=== PATIENT | female | born 1930 | race Caucasian/White ===

== ENCOUNTER 2017-03-02 04:25 | Emergency (ER) | payer MEDICARE, OTHER ==
[~2017-03-02] VITALS: Ht 154.9 cm; Wt 72.8 kg
[~2017-03-02 04:25] MED LIST: CEFD300C PO; LEVO125T PO; thyroid
--- NOTE | 2017-03-02 04:25 | NUR ---
Pt presents to ER with c/o left shoulder pain down to left ribs. Onset Friday morning. Reports pain is worse at times than at others. While she lies still, rates at 1/10. With movement, rates 7-8/10. Pt denies any falls or outside work. No other concerns presented.
--- OUTSIDE RECORDS SUMMARY | 2017-03-02 04:29 | XMS REPORT | Continuity of Care Document ---
Author Author [facility] Address Unknown Phone Unavailable Allergies Active Description Code Type Severity Reaction Onset Reported/Identified Relationship to Patient Clinical Status Yes adhesive tape 3254 Ingredient moderate redness Yes No Known Drug Allergies [id number] Drug Allergy Unknown N/ A 07/19/2012 Medications Problems Date Dx Coded Attending Type Code Diagnosis Diagnosed By 07/19/2012 Ot 873.42 07/19/2012 Ot 910.0 07/19/2012 Ot 913.0 07/19/2012 Ot 916.0 07/19/2012 Ot 920 07/19/2012 Ot E885.9 11/23/2014 Thanh GIRON, Drake Smith Ot 793.82 11/25/2014 Drake Law MD Ot 793.82 12/17/2014 Ot V76.12 12/17/2014 Ot 793.82 12/17/2014 Ot V76.12 12/17/2014 Ot 793.82 12/17/2014 Ot 610.0 12/17/2014 Ot 611.79 12/17/2014 Ot 611.79 12/17/2014 Ot V67.59 12/17/2014 Drake Law MD Ot 793.82 12/17/2014 Ot 789.69 12/17/2014 Ot 873.41 12/17/2014 Ot E812.0 12/17/2014 Ot E849.5 12/22/2014 Ot V76.12 12/22/2014 Ot 793.82 12/22/2014 Ot V76.12 12/22/2014 Ot 793.82 12/22/2014 Ot 610.0 12/22/2014 Ot 611.79 12/22/2014 Ot 611.79 12/22/2014 Ot V67.59 12/22/2014 Drake Law MD Ot 793.82 12/22/2014 Ot 920 12/22/2014 Ot E812.0 12/22/2014 Ot E849.5 12/22/2014 Ot V64.2 12/23/2014 Ot V76.12 12/23/2014 Ot 793.82 12/23/2014 Ot V76.12 12/23/2014 Ot 793.82 12/23/2014 Ot 610.0 12/23/2014 Ot 611.79 12/23/2014 Ot 611.79 12/23/2014 Ot V67.59 12/23/2014 Thanh GIRON, Drake Smith Ot 793.82 12/23/2014 Ot 920 12/23/2014 Ot E812.0 12/23/2014 Ot E849.5 12/23/2014 Ot V64.2 01/30/2015 JOHANNA GIRON, MALU Ot 599.0 01/30/2015 JOHANNA GIRON, MALU Ot 780.79 03/06/2015 JOHANNA GIRON, MALU Ot 780.2 03/06/2015 JOHANNA GIRON, MALU Ot 780.79 03/06/2015 JOHANNA GIRON, MALU Ot 787.01 03/06/2015 JOHANNA GIRON, MALU Ot E849.0 03/06/2015 JOHANNA GIRON, MALU Ot E888.9 05/05/2015 Drake Law MD Ot 793.82 05/10/2015 Thanh GIRON, Drake Smith Ot 793.82 05/24/2015 Drake Law MD Ot 793.82 07/07/2015 Tres Mooney 578.1 Blood in stool 08/02/2015 Thanh GIRON, Drake Smith Ot 793.82 08/04/2015 Thanh GIRON, Drake Smith Ot 793.82 08/04/2015 Drake Law MD Ot 793.82 08/15/2015 Drake Law MD M Ot 793.82 08/15/2015 Drake Law MD M Ot 793.82 11/09/2015 Drake Law MD Ot R92.2 11/09/2015 Thanh GIRON, Drake M Ot Z09 11/17/2015 Thanh GIRON, Drake M Ot R92.2 11/17/2015 Thanh GIRON, Drake Smith Ot Z09 02/05/2016 Drake Law MD Ot 793.82 05/15/2016 Drake Law MD Ot Z12.31 ENCNTR SCREEN MAMMOGRAM FOR MALIGNANT NE 05/15/2016 Drake Law MD Ot Z12.31 ENCNTR SCREEN MAMMOGRAM FOR MALIGNANT NE 05/20/2016 Drake Law MD, Ot Z12.31 ENCNTR SCREEN MAMMOGRAM FOR MALIGNANT NE 06/14/2016 Drake Law MD, Ot Z12.31 ENCNTR SCREEN MAMMOGRAM FOR MALIGNANT NE 06/17/2016 Drake Law MD, Ot Z12.31 ENCNTR SCREEN MAMMOGRAM FOR MALIGNANT NE 09/20/2016 Drake Law MD, Ot Z12.31 ENCNTR SCREEN MAMMOGRAM FOR MALIGNANT NE Procedures Results Encounters ACCT No. Visit Date/Time Discharge Status Pt. Type Provider Facility Loc./Unit Complaint [id number] 07/06/2015 08:03:00 07/06/2015 23: 59:00 DIS Outpatient Tres Mooney [facility] OUTPT Colonoscopy
--- OUTSIDE RECORDS SUMMARY | 2017-03-02 04:30 | XMS REPORT | Continuity of Care Document ---
Author Author [facility] Address Unknown Phone Unavailable Allergies Active Description Code Type Severity Reaction Onset Reported/Identified Relationship to Patient Clinical Status Yes adhesive tape 3254 Ingredient moderate redness Yes No Known Drug Allergies [id number] Drug Allergy Unknown N/ A 07/19/2012 Medications [...] ENCNTR SCREEN MAMMOGRAM FOR MALIGNANT NE 05/20/2016 rDake Law MD, Ot Z12.31 ENCNTR SCREEN MAMMOGRAM FOR MALIGNANT NE 06/14/2016 Drake Law MD, Ot Z12.31 ENCNTR SCREEN MAMMOGRAM FOR MALIGNANT NE 06/17/2016 Drake Law MD, Ot Z12.31 ENCNTR SCREEN MAMMOGRAM FOR MALIGNANT NE 09/20/2016 Drake Law MD, Ot Z12.31 ENCNTR SCREEN MAMMOGRAM FOR MALIGNANT NE Procedures Results Encounters ACCT No. Visit Date/Time Discharge Status Pt. Type Provider Facility Loc./Unit Complaint [id number] 07/06/2015 08:03:00 07/06/2015 23: 59:00 DIS Outpatient Tres Mooney [facility] OUTPT Colonoscopy
[2017-03-02 04:35] VITALS: BP 138/90
[2017-03-02] MEDS ORDERED: SODIUM CHLORIDE FLUSH 10 ML SYR IV PRN (04:35)
[2017-03-02] MEDS ORDERED: SODIUM CHLORIDE FLUSH 3 ML SYR IV PRN (04:35)
[2017-03-02] MEDS ORDERED: KETOROLAC 15 MG/ML (TORADOL) 1 ML VIAL IV ONE (04:45)
[2017-03-02 05:20] LABS: BASOPHILS % (AUTO) 0 % (0-2); EOSINOPHILS # (AUTO) 0.1 10^3uL; EOSINOPHILS % (AUTO) 1 % (0-4); LYMPHOCYTES # (AUTO) 1.6 X10^3; MEAN CORPUSCULAR HEMOGLOBIN 30.7 PG (26.0-34.0); MEAN CORPUSCULAR HGB CONC 34.8 g/dL (31.0-37.0); MEAN CORPUSCULAR VOLUME 88 FL (80-100); MEAN PLATELET VOLUME 9.9 FL (6.0-9.5); MONOCYTES # (AUTO) 1.1 X10^3; MONOCYTES % (AUTO) 10 % (3-11); NEUTROPHILS # (AUTO) 8.2 X10^3; NEUTROPHILS % (AUTO) 75 % (51-67); PLATELET COUNT 189 10^3uL (150-450); WHITE BLOOD COUNT 11.02 10^3uL (4.0-11.0)
[2017-03-02 05:21] LABS: ALBUMIN 4.2 g/dL (3.4-5.0); ALKALINE PHOSPHATASE 72 U/L (38-126); ANION GAP 14.5 MEQ/L (3-15); BUN/CREATININE RATIO 14 (10-20); CALCULATED IONIZED CALCIUM 4.1 mg/dL (3.8-4.6); CREATINE KINASE 57 U/L (30-135); MAGNESIUM* 1.8 mg/dL (1.6-2.3); TOTAL PROTEIN 7.5 g/dL (6.4-8.5)
[2017-03-02] MEDS ORDERED: ONDANSETRON 2 MG/ML (Z0FRAN) 2 ML VIAL IV ONE (06:10)
[2017-03-02] MEDS ORDERED: HYDROmorphone 1 MG/ML (DILAUDID) SYRINGE IV ONE (06:10)
[2017-03-02] MEDS ORDERED: TRM50T PO (06:40)
[2017-03-02 06:45] LABS: BILIRUBIN,URINE Negative (Negative); GLUCOSE, URINE (UA) Negative (Negative); LEUKOCYTE ESTERASE ,URINE Trace (Negative); UROBILINOGEN,URINE 0.2 mg/dL (0.2-1.0)
--- NOTE | 2017-03-02 06:45 | NUR ---
Report given, care relinquished.
[2017-03-02 06:46] LABS: CLARITY,URINE Slightly Cloudy; COLOR,URINE Dark Yellow; URINE CENTRIFUGED VOLUME 12 mL
[2017-03-02 06:52] LABS: AMORPHOUS SEDIMENT,UR 1+ /HPF
--- NOTE | 2017-03-02 08:04 | NUR ---
pt with family in room
--- NOTE | 2017-03-02 08:48 | Diagnostic Imaging Report ---
PROCEDURE: CT abdomen and pelvis without contrast. TECHNIQUE: Multiple contiguous axial images were obtained through the abdomen and pelvis without the use of intravenous contrast. INDICATION: Hematuria. Left-sided abdominal pain The liver, gallbladder and bile ducts are normal. The spleen, pancreas and adrenals are normal. The kidneys, ureters and bladder are normal. No acute bowel abnormality is seen. There is no mass. There is no free intraperitoneal air or fluid. There is no acute bony abnormality. IMPRESSION: No acute abnormality is seen. Dictated by: Dictated on workstation # [id number]
--- NOTE | 2017-03-02 08:49 | Diagnostic Imaging Report ---
INDICATION: Left-sided chest pain 3 views of the chest and left ribs were obtained. The heart size and vascularity are normal. There is minimal left basilar atelectasis. There is no effusion or pneumothorax. No fracture or other bony abnormalities seen. IMPRESSION: Left basilar atelectasis. Dictated by: Dictated on workstation # [id number]
--- NOTE | 2017-03-02 10:21 | Diagnostic Imaging Report ---
PROCEDURE: CT angiography of the chest with contrast. TECHNIQUE: Multiple contiguous axial images were obtained through the chest after uneventful bolus administration of intravenous contrast. Reconstructed CTA MIP acquisitions were also performed. INDICATION: Elevated d-dimer. Left-sided chest pain. FINDINGS: The lungs are clear. There is no effusion or pneumothorax. There is cardiomegaly with no failure. There is no mediastinal mass or hemorrhage. There is no aortic dissection. There is a small embolus in the left lower lobe involving the fourth order vessels. No other pulmonary embolus is evident. IMPRESSION: There is a small fourth order embolus in a left lower lobe pulmonary artery, age indeterminate. I doubt this small embolus would be symptomatic. No other embolus is seen. There is cardiomegaly with no failure. Dictated by: Dictated on workstation # [id number]
[2017-03-02] MEDS ORDERED: APIXABAN 2.5 MG (ELIQUIS) TABLET PO ONE (10:50)
[2017-03-02] MEDS ORDERED: APIX5TAB PO (10:56)
== END 2017-03-02 11:15 | disposition home or self-care (01) ==
LOC: ED 04:26
DX: I26.99 Other pulmonary embolism without acute cor pulmonale (principal); R07.89 Other chest pain
CPT/HCPCS: 36415; 71101; 71275; 74176; 80053; 81003; 81015; 82550; 82553; 83735; 84484; 85025; 85379; 85610; 85730; 87088; 93005; 96374; 96375; 99285; A9270; J1170; J1885; J2405; Q9967; 93010

== ENCOUNTER → 2017-03-10 | Outpatient (REF) | payer MEDICARE, OTHER ==
[~2017-03-10] MED LIST changes: +APIX5TAB PO; +TRM50T PO
== END ==
LOC: LAB 15:04
PROVIDERS: ATTEND Family Medicine
DX: R09.1 Pleurisy (principal)
CPT/HCPCS: 85379